=== PATIENT | female | born 1990 | race Caucasian/White ===

== ENCOUNTER 2019-06-13 10:11 | Inpatient (IN) | payer MEDICAID ==
[~2019-06-13] VITALS: Ht 172.7 cm; Wt 100.0 kg
[~2019-06-13 10:11] MED LIST: INSU100V5 SQ; INSULIN LANTIS SQ
[2019-06-13] MEDS ORDERED: SODIUM CITRATE/CITRIC ACID 30 ML UDC PO ONE (10:30)
[2019-06-13] MEDS ORDERED: METOCLOPRAMIDE 5 MG/ML, 2ML IV ONE (10:30)
[2019-06-13] MEDS ORDERED: LACTATED RINGERS 1,000 ML IVBOLUS ONE (10:30)
[2019-06-13] MEDS ORDERED: SODIUM CITRATE/CITRIC ACID 30 ML UDC ONE (10:57)
[2019-06-13] MEDS ORDERED: METOCLOPRAMIDE 5 MG/ML, 2ML ONE (10:57)
[2019-06-13] MEDS ORDERED: NEWBORN KIT ONE (10:57)
[2019-06-13] MEDS ORDERED: OXYTOCIN 30U/ 0.9% NaCL 500ML 500 ML ONE (10:57)
[2019-06-13] MEDS ORDERED: PLEASE ENTER HEIGHT AND WEIGHT MC SCH (11:00)
[2019-06-13 11:07] LABS: MICROSCOPIC NOT IND
[2019-06-13] MEDS ORDERED: OXYTOCIN 10 UNITS/ML, 1ML ONE (11:10)
[2019-06-13] MEDS ORDERED: ONDANSETRON 2MG/ML, 2ML ONE (11:10)
[2019-06-13] MEDS ORDERED: CEFAZOLIN 1,000 MG ONE (11:10)
[2019-06-13] MEDS ORDERED: HYDROmorphone 2 MG/ML, 1ML ONE (11:11)
[2019-06-13] MEDS ORDERED: FENTANYL PF 100 MCG/2ML ONE ×2 (11:11→15:06)
[2019-06-13 11:13] LABS: AMPHETAMINE SCREEN, URINE Negative (Negative); BARBITURATE SCREEN, URINE Negative (Negative); BENZODIAZEPINE SCREEN, URINE Negative (Negative); CANNABINOID SCREEN, URINE Negative (Negative); COCAINE SCREEN, URINE Negative (Negative); METHADONE SCREEN, URINE Negative (Negative); OPIATE SCREEN, URINE Negative (Negative)
[2019-06-13 11:15] LABS: BASOPHILS # (AUTO) 0.01 x10^3/uL (0-0.1); BASOPHILS % (AUTO) 0 % (0-1); EOSINOPHILS % (AUTO) 0 % (1-7); LYMPHOCYTES # (AUTO) 1.81 x10^3/uL (1-3.4); LYMPHOCYTES % (AUTO) 12 % (22-44); MD NO; MEAN CORPUSCULAR HEMOGLOBIN 31.6 pg (27.0-34.8); MEAN CORPUSCULAR HGB CONC 33.7 g/dL (32.4-35.8); MEAN CORPUSCULAR VOLUME 93.7 fL (80-100); MEAN PLATELET VOLUME 11.9 fL (7.4-10.4); MONOCYTES % (AUTO) 4 % (2-9); NEUTROPHILS # (AUTO) 12.16 x10^3/uL (1.8-6.8); NEUTROPHILS % (AUTO) 83 % (42-75); PLATELET COUNT 202 x10^3/uL (130-400); RED BLOOD COUNT 3.96 x10^6/uL (3.82-5.3); RED CELL DISTRIBUTION WIDTH 13.6 % (9.6-15.2)
[2019-06-13 11:19] VITALS: BP 121/73
[2019-06-13 11:58] LABS: ALANINE AMINOTRANSFERASE 13 U/L (12-78); ALBUMIN 2.3 g/dL (3.4-5.0); ANION GAP 8 mmol/L (5-15); CALCIUM 8.3 mg/dL (8.5-10.1); CHLORIDE 110 mmol/L (98-107); CREATININE 0.76 mg/dL (0.55-1.02)
[2019-06-13 12:00] LABS: ALKALINE PHOSPHATASE 115 U/L (45-117); BILIRUBIN,TOTAL 0.4 mg/dL (0.2-1.0); TOTAL PROTEIN 5.4 g/dL (6.4-8.2)
[2019-06-13] MEDS: LACTATED RINGERS 1,000 ML IV SCH ×4 (13:11→23:11)
[2019-06-13] MEDS ORDERED: MISOPROSTOL 200 MCG TABLET PR PRN (13:30)
[2019-06-13] MEDS ORDERED: OXYcodone/APAP 5/325MG TABLET PO PRN (13:30)
[2019-06-13] MEDS ORDERED: IBUPROFEN 600 MG TABLET PO PRN (13:30)
[2019-06-13] MEDS ORDERED: ONDANSETRON 2MG/ML, 2ML IV PRN ×2 (13:30→18:00)
[2019-06-13] MEDS: OXYTOCIN 30U/ 0.9% NaCL 500ML 500 ML IV SCH ×2 (13:53→23:11)
[2019-06-13] MEDS ORDERED: KETOROLAC 30 MG/1 ML ONE (13:53)
[2019-06-13] MEDS: KETOROLAC 30 MG/1 ML IV SCH ×3 (13:54→19:39)
[2019-06-13] MEDS ORDERED: FENTANYL PF 100 MCG/2ML IVPush PRN ×3 (15:30→18:00)
[2019-06-13 15:45] VITALS: BP 120/66
[2019-06-13] MEDS ORDERED: PREN1TAB10 PO (16:14)
[2019-06-13] MEDS ORDERED: ENOX40SY4 SQ (16:14)
[2019-06-13] MEDS ORDERED: FOLI0.4T2 PO (16:15)
[2019-06-13] MEDS ORDERED: OXYcodone 5 MG/5 ML ORAL.SOL UDC PO PRN (18:00)
[2019-06-13] MEDS ORDERED: HYDROmorphone 2 MG/ML, 1ML IV PRN (18:00)
[2019-06-13 18:55] VITALS: BP 111/66
[2019-06-13] MEDS ORDERED: DIPH,PERTUSS(ACELL),TET VAC/PF NC IM-VACC ONE ×2 (19:10→19:11)
[2019-06-13] MEDS ORDERED: DIPH,PERTUSS(ACELL),TET VAC/PF NC IM-VACC PRN (19:30)
[2019-06-13] MEDS: DOCUSATE 100 MG CAPSULE PO PRN (20:59)
[2019-06-13] MEDS: OXYcodone IR 5MG TABLET PO PRN (20:59)
[2019-06-13] MEDS: INSULIN REGULAR, HUMAN 100 UNIT/ML 3ML VIAL LOW DOSE SS SQ-INSULIN SCH (21:00)
[2019-06-13 21:31] LABS: MEAN CORPUSCULAR HEMOGLOBIN 31.5 pg (27.0-34.8); MEAN CORPUSCULAR HGB CONC 33.3 g/dL (32.4-35.8); MEAN CORPUSCULAR VOLUME 94.8 fL (80-100); PLATELET COUNT 187 x10^3/uL (130-400); RED BLOOD COUNT 3.54 x10^6/uL (3.82-5.3); RED CELL DISTRIBUTION WIDTH 13.6 % (9.6-15.2)
[2019-06-13 21:55] LABS: BASOPHILS # (AUTO) 0.01 x10^3/uL (0-0.1); BASOPHILS % (AUTO) 0 % (0-1); EOSINOPHILS # (AUTO) 0.15 x10^3/uL (0-0.4); EOSINOPHILS % (AUTO) 1 % (1-7); LYMPHOCYTES # (AUTO) 1.88 x10^3/uL (1-3.4); LYMPHOCYTES % (AUTO) 9 % (22-44); MD SCAN; MONOCYTES # (AUTO) 0.56 x10^3/uL (0.2-0.8); MONOCYTES % (AUTO) 3 % (2-9); NEUTROPHILS # (AUTO) 19.31 x10^3/uL (1.8-6.8); NEUTROPHILS % (AUTO) 88 % (42-75)
[2019-06-13] MEDS ORDERED: CALCIUM CARBONATE 500 MG TAB.CHEW ONE (22:48)
[2019-06-14] MEDS: OXYcodone IR 5MG TABLET PO PRN ×5 (00:46→21:04)
[2019-06-14] MEDS: KETOROLAC 30 MG/1 ML IV SCH ×4 (00:46→18:28)
[2019-06-14] MEDS: SIMETHICONE 80 MG CHEW TAB PO PRN ×3 (00:46→20:14)
[2019-06-14 00:54] VITALS: BP 102/69
[2019-06-14 03:37] VITALS: BP 119/69
[2019-06-14] MEDS: LACTATED RINGERS 1,000 ML IV SCH ×5 (05:11→21:11)
[2019-06-14] MEDS: INSULIN REGULAR, HUMAN 100 UNIT/ML 3ML VIAL LOW DOSE SS SQ-INSULIN SCH ×4 (07:00→20:15)
[2019-06-14 08:12] VITALS: BP 111/68
[2019-06-14] MEDS: OXYTOCIN 30U/ 0.9% NaCL 500ML 500 ML IV SCH ×2 (09:11→19:11)
[2019-06-14] MEDS: DOCUSATE 100 MG CAPSULE PO PRN ×2 (10:35→20:13)
[2019-06-14] MEDS: PRENATAL VIT/IRON/FA 1 EACH TABLET PO SCH (10:35)
[2019-06-14 11:30] VITALS: BP 101/67
[2019-06-14] MEDS: ENOXAPARIN 40 MG/0.4 ML SQ SCH (17:09)
[2019-06-14 20:00] VITALS: BP 109/70
[2019-06-14] MEDS ORDERED: INSULIN NPH HUMAN 100 UNIT/ML, 3ML VIAL SQ-INSULIN SCH (21:00)
[2019-06-14] MEDS: ACETAMINOPHEN 325 MG TABLET PO PRN (21:04)
[2019-06-15] MEDS: ACETAMINOPHEN 325 MG TABLET PO PRN ×5 (00:49→21:31)
[2019-06-15] MEDS: KETOROLAC 30 MG/1 ML IV SCH (00:49)
[2019-06-15] MEDS: OXYcodone IR 5MG TABLET PO PRN ×5 (00:50→21:31)
[2019-06-15] MEDS: SIMETHICONE 80 MG CHEW TAB PO PRN ×4 (00:50→20:54)
[2019-06-15] MEDS: OXYTOCIN 30U/ 0.9% NaCL 500ML 500 ML IV SCH ×3 (05:11→21:07)
[2019-06-15] MEDS: LACTATED RINGERS 1,000 ML IV SCH ×2 (05:11)
[2019-06-15] MEDS: IBUPROFEN 600 MG TABLET PO PRN ×3 (08:08→20:54)
[2019-06-15] MEDS: PRENATAL VIT/IRON/FA 1 EACH TABLET PO SCH (08:08)
[2019-06-15] MEDS: DOCUSATE 100 MG CAPSULE PO PRN (08:08)
[2019-06-15 08:09] VITALS: BP 110/75
[2019-06-15] MEDS ORDERED: INSULIN NPH HUMAN 100 UNIT/ML, 3ML VIAL SQ-INSULIN SCH (09:00)
[2019-06-15] MEDS ORDERED: DEXTROSE 4 GM TAB.CHEW PO PRN (12:00)
[2019-06-15] MEDS ORDERED: DEXTROSE 50%, 50ML SYRINGE IVPush PRN (12:00)
[2019-06-15] MEDS ORDERED: GLUCAGON 1 MG IM PRN (12:00)
[2019-06-15] MEDS ORDERED: IBUPROFEN 600 MG TABLET PO PRN (14:00)
[2019-06-15] MEDS ORDERED: INSULIN LISPRO SQ SCH (17:00)
[2019-06-15] MEDS ORDERED: [UNRECOGNIZED DRUG - OTHER] SQ SCH (17:00)
[2019-06-15] MEDS: ENOXAPARIN 40 MG/0.4 ML SQ SCH (17:21)
[2019-06-15 20:30] VITALS: BP 109/70
[2019-06-15] MEDS: SODIUM CHLORIDE FLUSH 10ML SYR IVF SCH (21:00)
[2019-06-16] MEDS: ACETAMINOPHEN 325 MG TABLET PO PRN ×5 (03:09→21:02)
[2019-06-16] MEDS: OXYcodone IR 5MG TABLET PO PRN ×5 (03:09→21:01)
[2019-06-16] MEDS: SIMETHICONE 80 MG CHEW TAB PO PRN ×3 (03:09→18:28)
[2019-06-16] MEDS: IBUPROFEN 600 MG TABLET PO PRN ×4 (03:09→22:17)
[2019-06-16] MEDS ORDERED: INSULIN LISPRO 100 UNITS/ML, PEN SQ-INSULIN SCH (03:30)
[2019-06-16] MEDS ORDERED: INSULIN GLARGINE 100 UNITS/ML, PEN SQ-INSULIN SCH ×2 (03:30→21:00)
[2019-06-16] MEDS: INSULIN LISPRO 100 UNITS/ML, PEN SQ-INSULIN SCH ×4 (07:24→21:21)
[2019-06-16] MEDS: PRENATAL VIT/IRON/FA 1 EACH TABLET PO SCH (07:25)
[2019-06-16] MEDS: SODIUM CHLORIDE FLUSH 10ML SYR IVF SCH ×2 (07:25→21:00)
[2019-06-16] MEDS ORDERED: INSULIN LISPRO SQ SCH (08:00)
[2019-06-16] MEDS ORDERED: [UNRECOGNIZED DRUG - OTHER] SQ SCH (08:00)
[2019-06-16] MEDS: OXYTOCIN 30U/ 0.9% NaCL 500ML 500 ML IV SCH ×2 (11:11→21:11)
[2019-06-16 11:49] VITALS: BP 111/72
[2019-06-16] MEDS: ENOXAPARIN 40 MG/0.4 ML SQ SCH (17:38)
[2019-06-16] MEDS: DOCUSATE 100 MG CAPSULE PO PRN (21:01)
[2019-06-16 21:30] VITALS: BP 109/66
[2019-06-17] MEDS: ACETAMINOPHEN 325 MG TABLET PO PRN ×4 (02:31→15:58)
[2019-06-17] MEDS: OXYcodone IR 5MG TABLET PO PRN ×4 (02:34→15:55)
[2019-06-17] MEDS: IBUPROFEN 600 MG TABLET PO PRN ×3 (05:07→18:02)
[2019-06-17] MEDS: INSULIN LISPRO 100 UNITS/ML, PEN SQ-INSULIN SCH ×2 (06:58→11:31)
[2019-06-17 07:40] VITALS: BP 111/69
[2019-06-17] MEDS: DOCUSATE 100 MG CAPSULE PO PRN (08:00)
[2019-06-17] MEDS: PRENATAL VIT/IRON/FA 1 EACH TABLET PO SCH (08:00)
[2019-06-17] MEDS: SIMETHICONE 80 MG CHEW TAB PO PRN ×2 (08:00→15:54)
[2019-06-17] MEDS ORDERED: INSULIN GLARGINE 100 UNITS/ML, PEN SQ-INSULIN SCH (09:00)
[2019-06-17] MEDS ORDERED: INSU100I13 SQ-INSULIN (14:00)
[2019-06-17] MEDS ORDERED: INSU100I11 SQ-INSULIN (14:00)
[2019-06-17] MEDS ORDERED: ALUMINUM/MAG/SIMETHICONE 30 ML UDC ONE ×2 (15:27→15:29)
[2019-06-17] MEDS ORDERED: OXYC-302 PO (15:30)
[2019-06-17] MEDS ORDERED: IBUP-1222 PO (15:31)
[2019-06-17] MEDS ORDERED: ENOX40SY4 SQ (15:31)
== END 2019-06-17 21:00 | disposition home or self-care (01) | DRG 787 ==
LOC: LDIP 10:11 → 2NW 15:33
PROVIDERS: ADMIT Obstetrics & Gynecology; ATTEND Obstetrics & Gynecology
PROC: 10D00Z1 Extraction of Products of Conception, Low, Open Approach (ICD-10-PCS; principal; 2019-06-13)
PROC: 3E0234Z Introduction of Serum, Toxoid and Vaccine into Muscle, Percutaneous Approach (ICD-10-PCS; 2019-06-13)
DX: O36.63X0 Maternal care for excessive fetal growth, third trimester, not applicable or unspecified (principal); O99.12 Other diseases of the blood and blood-forming organs and certain disorders involving the immune mechanism complicating childbirth; O99.354 Diseases of the nervous system complicating childbirth; O34.211 Maternal care for low transverse scar from previous cesarean delivery; D72.823 Leukemoid reaction; E10.65 Type 1 diabetes mellitus with hyperglycemia; F17.210 Nicotine dependence, cigarettes, uncomplicated; O40.3XX0 Polyhydramnios, third trimester, not applicable or unspecified; G43.909 Migraine, unspecified, not intractable, without status migrainosus; O99.334 Smoking (tobacco) complicating childbirth; Z37.0 Single live birth; Z3A.36 36 weeks gestation of pregnancy; Z23 Encounter for immunization; Z79.01 Long term (current) use of anticoagulants; Z79.4 Long term (current) use of insulin; Z82.49 Family history of ischemic heart disease and other diseases of the circulatory system; Z83.3 Family history of diabetes mellitus; Z86.711 Personal history of pulmonary embolism; Z86.718 Personal history of other venous thrombosis and embolism; Z91.11 Patient's noncompliance with dietary regimen; Z91.19 Patient's noncompliance with other medical treatment and regimen
CPT/HCPCS: 36415; 80053; 80307; 81003; 82962; 83036; 85025; 86592; 86850; 86900; 90715; G0378; J0690; J1170; J1650; J1815; J1885; J2405; J3010; J2590; J2765; J7120